=== PATIENT | female | born 1950 | race African-American/Black ===

== ENCOUNTER 2017-02-13 18:20 | Emergency (ER) | payer OTHER, MEDICAID ==
[~2017-02-13] VITALS: Ht 160 cm; Wt 72.6 kg
[~2017-02-13 18:20] MED LIST: PARO20TA51 PO
[2017-02-13 18:56] VITALS: BP 148/78
== END 2017-02-13 19:23 | disposition home or self-care (01) ==
LOC: ER 18:23
DX: Z76.0 Encounter for issue of repeat prescription (principal); F32.9 Major depressive disorder, single episode, unspecified; F41.9 Anxiety disorder, unspecified; G89.29 Other chronic pain; R51 Headache
CPT/HCPCS: A4606; Z7610

== ENCOUNTER 2017-04-05 03:38 | Emergency (ER) | payer OTHER ==
[~2017-04-05] VITALS: Ht 167.6 cm; Wt 65.3 kg
[2017-04-05 03:54] VITALS: BP 165/90
[2017-04-05] MEDS ORDERED: PHENYTOIN SODIUM IV 50 MG/ML VIAL IV ONE (04:30)
== END 2017-04-05 04:13 | disposition home or self-care (01) ==
LOC: ER 03:38
DX: F41.9 Anxiety disorder, unspecified (principal); Z76.0 Encounter for issue of repeat prescription; F32.9 Major depressive disorder, single episode, unspecified; I10 Essential (primary) hypertension
CPT/HCPCS: A4606; Z7610